=== PATIENT | male | born 1970 | race African-American/Black ===

== ENCOUNTER 2022-02-09 11:06 | Emergency (ER) | payer SELFPAY ==
[2022-02-09] MEDS ORDERED: Lactated Ringers 1,000 ML IV STA (12:30)
[2022-02-09 12:49] LABS: CARBON DIOXIDE,CO2 25.2 mmol/L (21.0-32.0); POTASSIUM,K 4.1 mmol/L (3.5-5.1)
[2022-02-09 12:56] LABS: CORONAVIRUS COVID-19 NAA NEGATIVE (NEGATIVE); INFLUENZA A NAA NEGATIVE (NEGATIVE); INFLUENZA B NAA NEGATIVE (NEGATIVE); RESPIRATORY SYNCYTIAL VIR NAA NEGATIVE (NEGATIVE)
[2022-02-09] MEDS ORDERED: Iopamidol 755 MG/ML 500 ML Multipack Bottle IVPUSH STA (15:10)
[2022-02-09] MEDS ORDERED: Sulfamethoxazole/Trimethoprim 800-160 MG Tab PO ONE (15:18)
== END 2022-02-09 15:39 | disposition home or self-care (01) ==
LOC: MW.ED 11:06
DX: K62.89 Other specified diseases of anus and rectum (principal); L08.9 Local infection of the skin and subcutaneous tissue, unspecified; Z20.822 Contact with and (suspected) exposure to COVID-19
CPT/HCPCS: 0241U; 36415; 72193; 76870; 80053; 81001; 83605; 83735; 85025; 85610; 87040; 93976; 96360; 99284; A9270; J7120; Q9967

== ENCOUNTER 2022-05-07 03:24 | Emergency (ER) | payer BC ==
[2022-05-07] MEDS: Morphine 4 MG/ML Syringe IVPUSH ONE (03:33)
[2022-05-07] MEDS: Ondansetron 4 MG/2 ML SDV IVPUSH ONE (03:35)
[2022-05-07] MEDS: Sodium Chloride 0.9% 1,000 ML IV ONE ×2 (03:39→05:24)
[2022-05-07 04:08] LABS: BLOOD UREA NITROGEN,BUN 11 mg/dL (7.0-18.0); CARBON DIOXIDE,CO2 24.4 mmol/L (21.0-32.0); CHLORIDE,CL 105 mmol/L (98-107); GLUCOSE RANDOM 123 mg/dL (74-106); LIPASE 39 U/L (73-393); POTASSIUM,K 4.3 mmol/L (3.5-5.1); SODIUM,NA 138 mmol/L (136-148)
[2022-05-07 04:12] LABS: ESTIMATED GFR 67 mL/min (>60)
[2022-05-07] MEDS: Iopamidol 755 MG/ML 500 ML Multipack Bottle IVPUSH STA (04:15)
[2022-05-07] MEDS: Famotidine 20 MG/2 ML SDV IVPUSH ONE (04:18)
[2022-05-07] MEDS: Alum Hydro/Mag Hydro/Simeth XS 15 ML, Lidocaine 2% 5 ML PO ONE ×2 (04:18)
[2022-05-07] MEDS: Ketorolac 30 MG/ML SDV IVPUSH ONE (05:24)
== END 2022-05-07 06:26 | disposition home or self-care (01) ==
LOC: MW.ED 03:24
DX: N13.2 Hydronephrosis with renal and ureteral calculous obstruction (principal); Z20.822 Contact with and (suspected) exposure to COVID-19
CPT/HCPCS: 36415; 71275; 74174; 80053; 81001; 83605; 83690; 83735; 84484; 85025; 85610; 85730; 87635; 93005; 96361; 96374; 96375; 99284; A9270; J1885; J2270; J2405; J3490; J7030; Q9967; 93010; U0002

== ENCOUNTER 2022-05-11 09:45 | Emergency (ER) | payer BC ==
[2022-05-11] MEDS ORDERED: Tamsulosin 0.4 MG Cap.ER PO STA (10:54)
== END 2022-05-11 12:00 | disposition home or self-care (01) ==
LOC: MW.ED 09:45
DX: N20.0 Calculus of kidney (principal); K59.03 Drug induced constipation; T40.2X5A Adverse effect of other opioids, initial encounter
CPT/HCPCS: 81001; 99284; A9270

== ENCOUNTER 2022-06-27 01:04 | Emergency (ER) | payer OTHER, BC ==
[2022-06-27] MEDS ORDERED: Sodium Chloride 0.9% 1,000 ML IV ONE (01:06)
[2022-06-27] MEDS ORDERED: fentaNYL 100 MCG/2 ML SDV ONE (01:07)
[2022-06-27] MEDS ORDERED: fentaNYL 100 MCG/2 ML SDV IVPUSH ONE (01:08)
[2022-06-27 01:15] LABS: BASOPHILS PERCENT AUTO 0.4 % (0.0-1.5); EOSINOPHILS ABSOLUTE AUTO 0.3 K/uL (0.0-0.7); EOSINOPHILS PERCENT AUTO 2.6 % (0.0-7.0); HEMATOCRIT 42.7 % (38.0-50.0); LYMPHOCYTES ABSOLUTE AUTO 4.1 K/uL (0.6-2.4); LYMPHOCYTES PERCENT AUTO 39.8 % (16.0-40.0); MEAN CORPUSCULAR HEMOGLOBIN 33.2 pg (27.0-32.0); MEAN CORPUSCULAR HGB CONC 35.1 g/dL (31.0-37.0); MEAN CORPUSCULAR VOLUME 94.5 fL (80.0-98.0); MONOCYTES ABSOLUTE AUTO 0.7 K/uL (0.0-0.8); MONOCYTES PERCENT AUTO 7.2 % (0.0-15.0); NEUTROPHILS ABSOLUTE AUTO 5.2 K/uL (1.4-5.7); NRBC ABSOLUTE 0 K/uL; PLATELET COUNT,PLT 332 K/uL (150-400); RED BLOOD CELL COUNT 4.52 M/uL (4.50-5.90); WHITE BLOOD CELL COUNT,WBC 10.32 K/uL (4.0-11.0)
[2022-06-27] MEDS ORDERED: Iopamidol 755 MG/ML 500 ML Multipack Bottle IVPUSH ONE (01:27)
[2022-06-27 01:28] LABS: INR 1.01 (0.86-1.11); PTT,PARTIAL THROMBOPLSTIN TIME 24.7 SEC (23.9-30.7)
[2022-06-27 01:42] LABS: ALBUMIN 3.8 g/dL (3.4-5.0); BILIRUBIN TOTAL 0.2 mg/dL (0.2-1.0); CARBON DIOXIDE,CO2 21.2 mmol/L (21.0-32.0); EST CRCL DRUG DOSING (CG) 95.17 mL/min; MAGNESIUM 1.9 mg/dL (1.8-2.4); POTASSIUM,K 3.6 mmol/L (3.5-5.1); PROTEIN TOTAL,TP 7.7 g/dL (6.4-8.2)
[2022-06-27 02:26] LABS: APPEARANCE,URINE CLEAR; BILIRUBIN,URINE NEGATIVE (NEGATIVE); COLOR,URINE YELLOW; GLUCOSE,URINE NEGATIVE (NEGATIVE); KETONES,URINE NEGATIVE (NEGATIVE); LEUKOCYTE ESTERASE,URINE NEGATIVE (NEGATIVE); NITRITE,URINE NEGATIVE (NEGATIVE); OCCULT BLOOD,URINE NEGATIVE (NEGATIVE); PROTEIN,URINE NEGATIVE (NEGATIVE); UROBILINOGEN,URINE 0.2 EU/dL (<2.0)
[2022-06-27 02:36] LABS: AMPHETAMINES SCREEN, URINE NEGATIVE (CUTOFF=500); BARBITURATE SCREEN,URINE NEGATIVE (CUTOFF=200); BENZODIAZEPINES SCREEN,URINE NEGATIVE (CUTOFF=150); BUPRENORPHINE SCREEN,URINE NEGATIVE (CUTOFF=10); METHADONE SCREEN, URINE NEGATIVE (CUTOFF=200); METHAMPHETAMINES SCREEN, URINE NEGATIVE (CUTOFF=500); OXYCODONE SCREEN,URINE NEGATIVE (CUT0FF=100); PCP SCREEN,URINE NEGATIVE (CUTOFF=25); PROPOXYPHENE SCREEN,URINE NEGATIVE (CUTOFF=300); THC SCREEN,URINE 20 NG/ML NEGATIVE (CUTOFF=50)
== END 2022-06-27 03:34 | disposition home or self-care (01) ==
LOC: MW.ED 01:04
DX: Z04.1 Encounter for examination and observation following transport accident (principal)
CPT/HCPCS: 36415; 70450; 71260; 72125; 72128; 72131; 74177; 80053; 80305; 80307; 81003; 83690; 83735; 84484; 85025; 85610; 85730; 93005; 96361; 96374; 99284; J3010; J7030; Q9967; 93010